=== PATIENT | female | born 1990 ===

== ENCOUNTER 2020-03-03 20:19 | Emergency (ER) | payer SELFPAY ==
[2020-03-03 20:38] VITALS: BP 121/79
[2020-03-03] MEDS ORDERED: DIPH/PERTUSS(ACELL)/TETANUS VAC/PF 0.5 ML SYR (>=10YO) IM ONE (21:16)
[2020-03-03] MEDS ORDERED: ACETAMINOPHEN 325 MG TABLET PO ONE (21:16)
--- NOTE | 2020-03-03 21:19 | ER Document Report ---
ED Medical Screen (RME) - General Chief Complaint: Head Injury Stated Complaint: HEAD INJURY Time Seen by Provider: 03/03/20 21:07 Notes: Patient states that last week she slipped on wet pavement fell and hit her head. Patient states there was positive loss of consciousness. Patient states that she initially had nausea although this is improved. Patient reports problems with insomnia, feeling off balance, having memory problems, and insomnia. I have greeted and performed a rapid initial assessment of this patient. A comprehensive ED assessment and evaluation of the patient, analysis of test results and completion of the medical decision making process will be conducted by additional ED providers. - Related Data Allergies/Adverse Reactions: ANTIBIOCTICS Allergy (Uncoded 03/03/20 21:09) Home Medications: ATIVAN PRN Past Medical History - Social History Frequency of alcohol use: Occasional Drug Abuse: None Physical Exam - Vital signs Vitals: Temp Pulse Resp BP Pulse Ox 98.9 F 77 24 H 121/79 100 03/03/20 20:36 03/03/20 20:36 03/03/20 20:36 03/03/20 20:36 03/03/20 20:36 - Neurological Neuro grossly intact: Yes Yin Coma Scale Eye Opening: Spontaneous [place] Coma Scale Verbal: Oriented Yin Coma Scale Motor: Obeys Commands [place] Coma Scale Total: 15 Course - Vital Signs Vital signs: Temp Pulse Resp BP Pulse Ox 98.9 F 77 24 H 121/79 100 03/03/20 20:36 03/03/20 20:36 03/03/20 20:36 03/03/20 20:36 03/03/20 20:36
--- NOTE | 2020-03-03 22:02 | RADIOLOGY REPORT (SQ) ---
CT head without contrast on 03/03/2020 at 9:27 PM CLINICAL INDICATION: Head injury, persistent headache, loss of consciousness TECHNIQUE: Multiple axial images are obtained throughout the head without the administration of contrast. This exam was performed according to our departmental dose-optimization program, which includes automated exposure control, adjustment of the mA and/or kV according to patient size and/or use of iterative reconstruction technique. Total DLP is 963.96 mGy*cm. COMPARISON: None FINDINGS: There is no hydrocephalus. There is no CT evidence of acute infarct. There is no hemorrhage. There are no abnormal extra-axial fluid collections. There is no mass, mass effect or midline shift. No bony abnormality is noted. IMPRESSION: No acute intracranial abnormality.
== END 2020-03-04 01:35 | disposition left against medical advice (07) ==
LOC: ER 20:19
DX: S06.9X9A Unspecified intracranial injury with loss of consciousness of unspecified duration, initial encounter (principal); W01.0XXA Fall on same level from slipping, tripping and stumbling without subsequent striking against object, initial encounter; G47.00 Insomnia, unspecified; Z88.1 Allergy status to other antibiotic agents; Z53.20 Procedure and treatment not carried out because of patient's decision for unspecified reasons
CPT/HCPCS: 70450; 99281